=== PATIENT | female | born 1940 | race Caucasian/White ===

== ENCOUNTER 2018-02-27 21:13 | Inpatient (IN) | payer OTHER ==
--- NOTE | 2018-02-27 21:41 | PDOC ---
History of Present Illness - General History Source: Patient, Old Records Exam Limitations: No Limitations - History of Present Illness Initial Comments: 02/27/18 22:15 The patient is a 77 year old female, with a significant past medical history of spinal stenosis (s/p laminectomy), lung cancer (s/p right lobectomy 2002), dementia, HTN, HLD, who presents to the emergency department with, post operative back pain. As per EMR, she had a laminectomy of L4-L5 with primary repair of dura tear with duragentic patch/duraseal by Dr. Darnell García on 02/26/18 and was discharged by MEENA Brooke today 02/27 after she was able able to ambulate with assistance. As per patient, she has lower back pain, ranked 7/10 similar to her spinal stenosis. She notes taking Tramadol, with relief. As per daughter, the patient was able to stand at home but, unable to ambulate. While in the ER, patient denies any pain but, is febrile to 100.8 degrees F oral. She denies recent headache or dizziness. She denies recent nausea, vomit, diarrhea or constipation. She denies recent dysuria, frequency, urgency or hematuria. She denies recent chest pain or shortness of breath. Allergies: NKDA Past surgical history: R lobectomy. Laminectomy/ Social history: Former smoker. Denies EtOH use and recreational drug use. <Mookie Vaughn - Last Filed: 02/27/18 23:00> - History of Present Illness Initial Comments: 1 <Shari Samaniego - Last Filed: 02/28/18 03:33> - General Chief Complaint: Pain, Acute Stated Complaint: BACK PAIN POST SPINAL SURGERY Time Seen by Provider: 02/27/18 21:39 Past History <Mookie Vaughn - Last Filed: 02/27/18 23:00> - Past Medical History Anemia: No Asthma: No Cancer: Yes (RIGHT LUNG LOWER LOBE- 2002,MYCOSIS FUNOIDES) Cardiac Disorders: No CVA: No COPD: No CHF: No Dementia: No Diabetes: No GI Disorders: No Disorders: No HTN: Yes (DX 2007) Hypercholesterolemia: Yes (DX 2007) Liver Disease: No Seizures: No Thyroid Disease: No - Surgical History Abdominal Surgery: No Appendectomy: No Cardiac Surgery: No Cholecystectomy: No Lung Surgery: Yes (RIGHT LUNG LOWER LOBE REMIVED- 2002) Neurologic Surgery: No Orthopedic Surgery: No - Suicide/Smoking/Psychosocial Hx Smoking History: Former smoker Have you smoked in the past 12 months: No Number of Cigarettes Smoked Daily: 40 If you are a former smoker, when did you quit?: 2002 Information on smoking cessation initiated: No Hx Alcohol Use: No Drug/Substance Use Hx: No Substance Use Type: Alcohol Hx Substance Use Treatment: No <Shari Samaniego - Last Filed: 02/28/18 03:33> - Past Medical History Allergies/Adverse Reactions: Allergies Allergy/AdvReac Type Severity Reaction Status Date / Time No Known Allergies Allergy Verified 02/26/18 07:29 Home Medications: Ambulatory Orders Amlodipine Besylate 10 mg PO DAILY 02/21/18 Atorvastatin Ca [Lipitor] 20 mg PO HS 02/21/18 Budesonide/Formeterol Fumarate [SYMBICORT 160/4.5mcg -] 1 inh PO DAILY 02/21/18 Carvedilol [Coreg -] 25 mg PO BID 02/21/18 Hydrochlorothiazide 25 mg PO DAILY 02/21/18 Lisinopril 20 mg PO DAILY 02/21/18 Mechlorethamine HCl [Valchlor] 60 gm TP HS 02/21/18 Meclizine HCl [Antivert -] 12.5 mg PO TID PRN 02/21/18 Multivitamins [Multivit ([facility] Formulary)] 1 tab PO DAILY 02/21/18 traMADol HCL [Ultram] 50 mg PO Q6H PRN #20 tablet MDD 4 02/26/18 Review of Systems - Review of Systems Able to Perform ROS?: Yes Comments:: 02/27/18 22:16 CONSTITUTIONAL: Absent: fever, no chills, no fatigue EYES: Absent: visual changes ENT: Absent: ear pain, no sore throat CARDIOVASCULAR: Absent: chest pain, no palpitations RESPIRATORY: Absent: cough, no SOB GI: Absent: abdominal pain, no nausea, no vomiting, no constipation, no diarrhea GENITOURINARY: Absent: dysuria, no frequency, no hematuria MUSKULOSKELETAL: Absent: back pain, no arthralgia, no myalgia SKIN: Absent: rash NEURO: Absent: headache All Other Systems: Reviewed and Negative <Mookie Vaughn - Last Filed: 02/27/18 23:00> *Physical Exam - Vital Signs Last Vital Signs Temp Pulse Resp BP Pulse Ox 100.8 F H 83 16 159/59 L 94 L 02/27/18 21:31 02/27/18 21:31 02/27/18 21:31 02/27/18 21:31 02/27/18 21:31 - Physical Exam Comments: 02/27/18 22:16 GENERAL: The patient is awake, alert, and fully oriented, in no acute distress. HEAD: Normal with no signs of trauma. EYES: Pupils equal, round and reactive to light, extraocular movements intact, sclera anicteric, conjunctiva clear with no pallor. +ENT:Dry mucous membranes. Ears normal, nares patent, oropharynx clear without exudates. NECK: Normal range of motion, supple without lymphadenopathy, JVD, or masses. +LUNGS: Bilateral expiratory crackles at the bases to a third of the way up. HEART: Regular rate and rhythm, normal S1 and S2 without murmur or rub. ABDOMEN: Soft/nontender/nondistended. BS wnl. No guarding or rebound. No palpable masses. No hepatosplenomegaly. +EXTREMITIES: 1+ lower extremity edema bilaterally. Normal range of motion. No clubbing or cyanosis. No cords, erythema, or tenderness. +BACK: Well-healing surgical scar with minimal erythema. No edema or tenderness. NEUROLOGICAL: Cranial nerves II through XII grossly intact. Normal speech. PSYCH: Normal mood, normal affect. SKIN: Warm, Dry, normal turgor, no rashes or lesions noted. <Mookie Vaughn - Last Filed: 02/27/18 23:00> - Vital Signs Last Vital Signs Temp Pulse Resp BP Pulse Ox 100.8 F H 83 16 159/59 L 94 L 02/27/18 21:31 02/27/18 21:31 02/27/18 21:31 02/27/18 21:31 02/27/18 21:31 <Shari Samaniego - Last Filed: 02/28/18 03:33> ED Treatment Course - ADDITIONAL ORDERS Additional order review: Laboratory Results 02/27/18 22:05 Urine Color Yellow Urine Appearance Clear Urine pH 5.0 Ur Specific [place] 1.015 Urine Protein Negative Urine Glucose (UA) Negative Urine Ketones Negative Urine Blood Negative Urine Nitrite Negative Urine Bilirubin Negative Urine Urobilinogen 0.2 Ur Leukocyte Esterase Trace H <Mookie Vaughn - Last Filed: 02/27/18 23:00> Medical Decision Making - Medical Decision Making Documentation has been prepared under my direction and personally reviewed by me in its entirety. I attest that this documented accurately reflects all work, treatment, procedures and medical decision making performed by me. As noted above, this 77-year-old woman with history of HTN/HLD/dementia/lung cancer/obesity is brought in by ambulance accompanied by her and daughter. She had been discharged from this hospital earlier today after L45 laminectomy yesterday by . According to family, patient had marked difficulty in moving once she was home. Transfers from seated to standing position were exceedingly difficult and patient was unwilling or unable to walk once she was standing. Daughter states that she had discussed this issue some time during the day or early evening with Dr. Quezada. Ambulance was called for transfer back to this ER. Exam as noted with oral temperature 100.8 degrees Fahrenheit Urinalysis was sent to evaluate for UTI: No evidence of acute infection seen. Chest x-ray likewise was performed because of expiratory crackles at the bases this: No clear evidence of infiltrate/effusions or other acute process. Patient was noted to have significant difficulty during transfer [facility]. She otherwise was unable to bear weight or walk while here in the emergency room. Dr Quezada answering service called: Snehal James RPA returned call and case discussed with her. Patient to be admitted to Dr Quezada's service for physical therapy and likely transfer to rehab facility <Shari Samaniego - Last Filed: 02/28/18 03:33> *DC/Admit/Observation/Transfer - Attestations Scribe Attestion: 02/27/18 22:19 Documentation prepared by Mookie Vaughn, acting as medical coding specialist for Shari Samaniego MD. <Mookie Vaughn - Last Filed: 02/27/18 23:00> - Discharge Dispostion Decision to Admit order: Yes <Shari Samaniego - Last Filed: 02/28/18 03:33> Diagnosis at time of Disposition: Intractable back pain - Discharge Dispostion Condition at time of disposition: Stable
[2018-02-27 21:43] VITALS: BMI 29.2
[2018-02-27 22:12] LABS: URINE APPEARANCE Clear; URINE BILIRUBIN Negative (NEGATIVE); URINE COLOR Yellow; URINE GLUCOSE (UA) Negative (NEGATIVE); URINE KETONE Negative (NEGATIVE); URINE LEUK ESTERASE TRACE (NEGATIVE); URINE NITRITE Negative (NEGATIVE); URINE PROTEIN Negative (NEGATIVE); URINE UROBILINOGEN 0.2 (0.2-1.0)
[2018-02-27] MEDS ORDERED: ACETAMINOPHEN 325 MG TABLET (FP) PO ONE (22:34)
[2018-02-27 22:35] LABS: EPI CELLS 1+ /HPF; URINE BACTERIA 1+ /hpf (NEGATIVE); URINE RBC 0-2 /hpf (0-3)
[2018-02-27] MEDS ORDERED: ACETAMINOPHEN 325 MG TABLET (FP) ONE (22:45)
[2018-02-28] MEDS ORDERED: traMADol HCL 50 MG TABLET ONE (00:18)
[2018-02-28] MEDS: traMADol HCL 50 MG TABLET PO ONE ×2 (00:25→09:48)
[2018-02-28] MEDS ORDERED: traMADol HCL 50 MG TABLET PO PRN ×2 (03:19→07:35)
[2018-02-28] MEDS ORDERED: MECLIZINE HCL 12.5 MG TABLET PO PRN (07:35)
[2018-02-28] MEDS: HYDROCHLOROTHIAZIDE 25 MG TABLET (FP) PO SCH (09:49)
[2018-02-28] MEDS: CARVEDILOL 25 MG TABLET (FP) PO SCH ×2 (09:49→21:14)
[2018-02-28] MEDS: amLODIPine BESYLATE 10 MG TABLET (FP) PO SCH (09:49)
[2018-02-28] MEDS: LISINOPRIL 20 MG TABLET (FP) PO SCH (09:49)
[2018-02-28] MEDS: BUDESONIDE/FORMETEROL FUMARATE 160/4.5 mcg INHALER IH SCH (09:54)
--- NOTE | 2018-02-28 11:29 | HP ---
Admitting History and Physical - Admission History of Present Illness: 77 yo female s/p L4-5 Laminectomy on Monday-02/26. She stayed after her surgery and was admitted for 23 hours. Prior to discharge she was voiding, ambulaating and tolerating a diet. She returned to the ER on Monday night because she felt weak. Today, she states that her pain is around an 8/10. NO CP/SOB/ No nausea. She had a slight headache yesterday but denies any headache today. History Source: Patient Limitations to Obtaining History: No Limitations - Past Medical History Cardiovascular: Yes: HTN, Hyperlipdemia. No: Deep Vein Thrombosis Pulmonary: Yes: Asthma, Cancer (h/o right lung wedge resection) Gastrointestinal: No: Constipation Renal/: No: Hematuria, Renal Calculi - Smoking History Smoking history: Former smoker Have you smoked in the past 12 months: No Aproximately how many cigarettes per day: 40 If you are a former smoker, when did you quit?: 2002 - Alcohol/Substance Use Hx Alcohol Use: No <Georgie García - Last Filed: 02/28/18 17:59> - Admission Chief Complaint: Patient well known to our service. Patient transferred from home for rehab placement. Neuro exam : 09/02 in [facility] <Darnell Quezada - Last Filed: 03/01/18 10:35> Home Medications <Georgie García - Last Filed: 02/28/18 17:59> <Darnell Quezada - Last Filed: 03/01/18 10:35> - Allergies Allergies/Adverse Reactions: Allergies Allergy/AdvReac Type Severity Reaction Status Date / Time No Known Allergies Allergy Verified 02/26/18 07:29 - Home Medications Home Medications: Ambulatory Orders Amlodipine Besylate 10 mg PO DAILY 02/21/18 Atorvastatin Ca [Lipitor] 20 mg PO HS 02/21/18 Budesonide/Formeterol Fumarate [SYMBICORT 160/4.5mcg -] 1 inh PO DAILY 02/21/18 Carvedilol [Coreg -] 25 mg PO BID 02/21/18 Hydrochlorothiazide 25 mg PO DAILY 02/21/18 Lisinopril 20 mg PO DAILY 02/21/18 Mechlorethamine HCl [Valchlor] 60 gm TP HS 02/21/18 Meclizine HCl [Antivert -] 12.5 mg PO TID PRN 02/21/18 Multivitamins [Multivit ([facility] Formulary)] 1 tab PO DAILY 02/21/18 traMADol HCL [Ultram] 50 mg PO Q6H PRN #20 tablet MDD 4 02/26/18 Review of Systems - Review of Systems Constitutional: denies: Chills, Fever Eyes: denies: Blurred Vision Neck: denies: Decreased ROM Cardiovascular: denies: Chest Pain, Palpitations Respiratory: denies: Cough, SOB Gastrointestinal: denies: Abdominal Pain, Constipation Genitourinary: denies: Burning, Hematuria Musculoskeletal: reports: Back Pain. denies: Decreased ROM Integumentary: denies: Blister, Bruising Neurological: denies: Dizziness, Headache <Metzen,Georgie - Last Filed: 02/28/18 17:59> Physical Examination Vital Signs: Vital Signs Temperature 98.9 F 02/28/18 09:46 Pulse Rate 77 02/28/18 09:46 Respiratory Rate 18 02/28/18 09:46 Blood Pressure 148/59 L 02/28/18 09:46 O2 Sat by Pulse Oximetry (%) 99 02/28/18 06:00 Constitutional: Yes: No Distress, Calm Eyes: Yes: Conjunctiva Clear. No: Sclera Icterus HENT: Yes: Atraumatic, Normocephalic Neck: Yes: WNL, Supple, Trachea Midline Cardiovascular: Yes: WNL, Regular Rate and Rhythm Respiratory: Yes: WNL, Regular, CTA Bilaterally Gastrointestinal: Yes: WNL, Normal Bowel Sounds, Soft Extremities: No: Calf Tenderness Edema: No Peripheral Pulses WNL: Yes Peripheral Pulses: Left Doralis Pedis: 2+, Right Dorsalis Pedis: 2+ Wound/Incision: Yes: Clean/Dry, Well Approximated Neurological: Yes: WNL, Alert, Oriented ...Motor Strength: LUE, LLE, RUE, RLE Psychiatric: Yes: WNL, Alert, Oriented <Metzen,Georgie - Last Filed: 02/28/18 17:59> Vital Signs: Vital Signs Temperature 98.9 F 03/01/18 09:41 Pulse Rate 71 03/01/18 09:41 Respiratory Rate 19 03/01/18 09:41 Blood Pressure 120/51 L 03/01/18 09:41 O2 Sat by Pulse Oximetry (%) 95 03/01/18 07:04 <Darnell Quezada - Last Filed: 03/01/18 10:35> Assessment/Plan A/P: 77 yo female s/p L4-5 laminectomy, admitted with weakness/pain D/w Dr. Quezada and he agrees with the plan Pt may be oob to chair/ambulate. Physical Therpay consult to be obtained Resume all oral medications Tylenol/ultram for pain Stool softners for constipation Incentive spirometer, Pt with low grade temp on admission. Monitor fever curve. <Georgie García - Last Filed: 02/28/18 17:59>
[2018-02-28] MEDS ORDERED: POLYETHYLENE GLYCOL 3350 119 GM BTL PO PRN (17:56)
[2018-02-28] MEDS: DOCUSATE SODIUM 100 MG CAPSULE (FP) PO SCH (21:14)
[2018-02-28] MEDS: ATORVASTATIN CA 20 MG TABLET (FP) PO SCH (21:14)
[2018-02-28] MEDS ORDERED: [UNRECOGNIZED DRUG - OTHER] TP SCH (22:00)
[2018-03-01] MEDS: DOCUSATE SODIUM 100 MG CAPSULE (FP) PO SCH ×4 (06:30→21:48)
[2018-03-01] MEDS ORDERED: PT OWN MED DRAWER 7, Y5N ONE (09:18)
[2018-03-01] MEDS: HYDROCHLOROTHIAZIDE 25 MG TABLET (FP) PO SCH (09:43)
[2018-03-01] MEDS: amLODIPine BESYLATE 10 MG TABLET (FP) PO SCH (09:43)
[2018-03-01] MEDS: LISINOPRIL 20 MG TABLET (FP) PO SCH (09:43)
[2018-03-01] MEDS: BUDESONIDE/FORMETEROL FUMARATE 160/4.5 mcg INHALER IH SCH (09:43)
[2018-03-01] MEDS: CARVEDILOL 25 MG TABLET (FP) PO SCH ×2 (09:43→21:48)
[2018-03-01] MEDS: ATORVASTATIN CA 20 MG TABLET (FP) PO SCH (21:48)
[2018-03-02] MEDS: DOCUSATE SODIUM 100 MG CAPSULE (FP) PO SCH ×3 (06:01→21:09)
[2018-03-02] MEDS ORDERED: PT OWN MED DRAWER 7, Y5N ONE ×2 (09:31→11:15)
[2018-03-02] MEDS: amLODIPine BESYLATE 10 MG TABLET (FP) PO SCH (10:04)
[2018-03-02] MEDS: HYDROCHLOROTHIAZIDE 25 MG TABLET (FP) PO SCH (10:04)
[2018-03-02] MEDS: LISINOPRIL 20 MG TABLET (FP) PO SCH (10:04)
[2018-03-02] MEDS: ACETAMINOPHEN 325 MG TABLET (FP) PO PRN ×2 (10:05→21:09)
[2018-03-02] MEDS: BUDESONIDE/FORMETEROL FUMARATE 160/4.5 mcg INHALER IH SCH (10:05)
[2018-03-02] MEDS: CARVEDILOL 25 MG TABLET (FP) PO SCH ×2 (10:05→21:09)
--- NOTE | 2018-03-02 13:50 | PN ---
Progress Note (short form) - Note Progress Note: Ms Mtz is comfortable this AM Neuro exam is 5/5 strength in her lower extremity muscle groups She has been ambulating to the bathroom with a walker Patient has been accepted to a rehab facility and will be transferred there tomorrow Follow up with me next week
[2018-03-02] MEDS: ATORVASTATIN CA 20 MG TABLET (FP) PO SCH (21:09)
[2018-03-03] MEDS: DOCUSATE SODIUM 100 MG CAPSULE (FP) PO SCH (06:13)
--- NOTE | 2018-03-03 06:13 | DS ---
Physical Exam: SUBJECTIVE: Patient seen and examined by Dr. Quezada on 03/02/2018 OBJECTIVE: Vital Signs Period Temp Pulse Resp BP Sys/Giron Pulse Ox Last 24 Hr 98.9 F-100.4 F 73-83 17-18 128-152/32-52 90-92 PHYSICAL EXAM Ms Mtz is comfortable this AM Neuro exam is 5/5 strength in her lower extremity muscle groups She has been ambulating to the bathroom with a walker Patient has been accepted to a rehab facility and will be transferred there tomorrow Follow up with me next week LABS Laboratory Tests 02/27/18 22:05 Urine Color Yellow Urine Appearance Clear Urine pH 5.0 Ur Specific [place] 1.015 Urine Protein Negative Urine Glucose (UA) Negative Urine Ketones Negative Urine Blood Negative Urine Nitrite Negative Urine Bilirubin Negative Urine Urobilinogen 0.2 Ur Leukocyte Esterase Trace H Urine RBC 0-2 Urine WBC 2-5 Ur Epithelial Cells 1+ Urine Bacteria 1+ HOSPITAL COURSE: The patient was admitted to the hospital on 02/27 after an earlier discharge that day. She was s/p L4-5 laminectomy for spinal stenosis on 02/26. She returned to the ER for pain with weakness and difficulty walking. At time of admission her pain scale level was a 8/10 and her headaches had improved and she remained non symptomatic. While in the hospital the patient ambulated with Physical Therapy and discharge to a rehab facility was recommended. The patient was tolerated a diet, voiding without difficulty and was having bowel movements. Date of Admission:02/28/18 Date of Discharge: 03/03/18 Minutes to complete discharge: 20 Discharge Summary Reason For Visit: INTRACTABLE BACK PAIN Current Active Problems Intractable back pain (Acute) Condition: Good - Instructions Diet, Activity, Other Instructions: Post Operative Instructions - Dr Quezada Diet: You may resume your regular diet. We recommend eating plenty of fiber rich foods to prevent constipation, which can be caused by taking narcotic pain medications. You may also use a stool softener such as DulcoEase. We recommend drinking plenty of water unless you are on fluid restrictions for another medical condition. If you are a diabetic, make sure to keep your glucose well controlled as elevated glucose levels promote infection. Medications: You may resume your previous medications unless otherwise instructed by your surgeon, primary care doctor or fruit raiser. You have been prescribed a Narcotic pain medication. Driving or drinking alcohol is PROHIBITED while taking narcotic pain medication, as is operating any heavy machinery. Activity: No bending and or twisting at the waist. No lifting greater than [address] until seen in the office for your first post-operative visit. You may be a passenger for a short time (20-30 minutes) until you are able to tolerate longer distances. Wound Care: NO BATHS. You may shower starting two (2) days after your surgery. When showering, leave the occlusive(plastic) dressing in place and change if it appears wet. Avoid direct water stream onto your incision. General Recommendations: If sitting, use only a straight back chair to ensure proper support, not to exceed a half hour at a time. Lie only on a firm mattress, no couches or recliner chairs. You may lie on your back or side, but not on your abdomen. * Absolutely no bending, stooping, pushing, lifting or straining. * Avoid housework, especially vacuuming or sweeping. * OK to cook, as long as you are not lifting anything heavier than 5 pounds. * Use proper body mechanics to maintain a neutral spine position. * Increasing pain is a red flag telling you to rest. Call your surgeon or report to the ED if you develop: Fevers over 101.5 Chest pain, trouble breathing, calf pain Drainage from the incision (yellow/green, foul smelling) Follow-up Call surgeon's office to schedule your follow-up appointment in two weeks. Referred to following clinics/specialists for follow-up care: Darnell Quezada MD [address], [place] [address] [phone] Disposition: [facility]IOR [facility]ARE FACILITY - Home Medications Comprehensive Discharge Medication List: Ambulatory Orders Amlodipine Besylate 10 mg PO DAILY 02/21/18 Atorvastatin Ca [Lipitor] 20 mg PO HS 02/21/18 Budesonide/Formeterol Fumarate [SYMBICORT 160/4.5mcg -] 1 inh PO DAILY 02/21/18 Carvedilol [Coreg -] 25 mg PO BID 02/21/18 Hydrochlorothiazide 25 mg PO DAILY 02/21/18 Lisinopril 20 mg PO DAILY 02/21/18 Mechlorethamine HCl [Valchlor] 60 gm TP HS 02/21/18 Meclizine HCl [Antivert -] 12.5 mg PO TID PRN 02/21/18 Multivitamins [Multivit ([facility] Formulary)] 1 tab PO DAILY 02/21/18 traMADol HCL [Ultram -] 50 mg PO Q6H PRN #20 tablet MDD 4 02/26/18 This patient is new to me today: No Emergency Visit: Yes ED Registration Date: 02/28/18 Care time: The patient presented to the Emergency Department on the above date and was hospitalized for further evaluation of their emergent condition. Critical Care patient: No - Discharge Referral Referred to [facility] Med [facility] No
[2018-03-03 07:01] VITALS: BP 146/53; PULSE 73; TEMP 98.7
[2018-03-03] MEDS: HYDROCHLOROTHIAZIDE 25 MG TABLET (FP) PO SCH (09:48)
[2018-03-03] MEDS: BUDESONIDE/FORMETEROL FUMARATE 160/4.5 mcg INHALER IH SCH (09:48)
[2018-03-03] MEDS: amLODIPine BESYLATE 10 MG TABLET (FP) PO SCH (09:48)
[2018-03-03] MEDS: CARVEDILOL 25 MG TABLET (FP) PO SCH (09:48)
[2018-03-03] MEDS: LISINOPRIL 20 MG TABLET (FP) PO SCH (09:48)
== END 2018-03-03 10:09 | DRG 948 ==
LOC: FER 21:13 → FM/S 02-28 → UNDOADMOB 02-28 00:04 → FM/S 02-28 00:04 → OBSVTOIN 02-28 17:36
PROVIDERS: ADMIT Orthopaedic Surgery Orthopaedic Surgery of the Spine; ATTEND Orthopaedic Surgery Orthopaedic Surgery of the Spine
DX: G89.18 Other acute postprocedural pain (principal); F03.90 Unspecified dementia, unspecified severity, without behavioral disturbance, psychotic disturbance, mood disturbance, and anxiety; M48.061 Spinal stenosis, lumbar region without neurogenic claudication; I10 Essential (primary) hypertension; E78.5 Hyperlipidemia, unspecified; Z90.2 Acquired absence of lung [part of]; Z87.891 Personal history of nicotine dependence; Z85.118 Personal history of other malignant neoplasm of bronchus and lung
CPT/HCPCS: 71045-TC-FY; 72100-TC-FY; 81003; 81015; 94760; 97116-GP; 97161-GP; 99281-25; G0378